=== PATIENT | female | born 1990 | race Hispanic/Latino ===

== ENCOUNTER 2018-10-02 20:43 | Emergency (ER) | payer MEDICAID ==
[2018-10-02] MEDS ORDERED: ACETAMINOPHEN EXTRA STRENGTH 500 MG TABLET ONE (21:03)
== END 2018-10-02 21:22 | disposition home or self-care (01) ==
LOC: EDH 20:43
DX: O16.2 Unspecified maternal hypertension, second trimester (principal); O99.512 Diseases of the respiratory system complicating pregnancy, second trimester; J45.909 Unspecified asthma, uncomplicated; Z88.6 Allergy status to analgesic agent; Z3A.16 16 weeks gestation of pregnancy

== ENCOUNTER 2025-03-17 15:28 | Emergency (ER) | payer MEDICAID, OTHER ==
[~2025-03-17] VITALS: Ht 157.5 cm; Wt 100.7 kg
--- NOTE | 2025-03-17 15:48 | ERN ---
ED Note History of Present Illness Stated Complaint: FEVER, FLU, COUGH Time Seen by MD: 15:40 Dictation: PATIENT IS A 34-YEAR-OLD FEMALE COMING IN TODAY WITH FLU-LIKE SYMPTOMS TO INCLUDE COUGH WITH THE OCCASIONAL YELLOW PHLEGM. SHE ALSO STATES SHE HAS CHEST PAIN WHEN SHE COUGHS. SHE ALSO STATES SHE HAS BEEN HAVING FLU-LIKE SYMPTOMS TO INCLUDE CLEAR RUNNY NOSE SORE THROAT WITH VERY PAINFUL SWALLOWING. FRONTAL HEADACHE. NO LOSS OF TASTE OR SMELL NO NAUSEA VOMITING NO DIARRHEA. NO PRIMARY CARE DOCTOR AND HAS NOT TAKEN ANYTHING TODAY PRIOR TO ARRIVAL FOR PAIN. 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 Allergies: Coded Allergies: NSAIDS (Non-Steroidal Anti-Inflamma (Unverified Allergy, Unknown, 03/17/25) aspirin (Unverified Allergy, Unknown, 03/17/25) Past Medical History History: Not Applicable RN Note Reviewed/Agreed w/PFSH: Yes Review of System Dictation CONSTITUTIONAL: NEGATIVE EXCEPT FOR HPI FEVER CHILLS HEAD/FACE: NEGATIVE EXCEPT FOR HPI EENT: NEGATIVE EXCEPT FOR HPI FRONTAL HEADACHE, CLEAR RHINITIS, SORE THROAT WITH PAINFUL SWALLOWING RESPIRATORY: NEGATIVE EXCEPT FOR HPI INTERMITTENT PRODUCTIVE COUGH WITH YELLOW PHLEGM GASTROINTESTINAL/ABDOMINAL: NEGATIVE EXCEPT FOR HPI GENITOURINARY: NEGATIVE EXCEPT FOR HPI MUSCULOSKELETAL: NEGATIVE EXCEPT FOR HPI INTEGUMENTARY: NEGATIVE EXCEPT FOR HPI NEUROLOGICAL/PSYCH: NEGATIVE EXCEPT FOR HPI HEMATOLOGIC/LYMPHATIC: NEGATIVE EXCEPT FOR HPI ALL SYSTEMS NEGATIVE, EXCEPT NOTED ABOVE. 13 POINT REVIEW OF SYSTEMS ASSESSED AND ALL NEGATIVE EXCEPT FOR ABOVE. Initial Vital Sign VS Vital Signs Date Time Temp Pulse Resp B/P (MAP) Pulse Ox O2 Delivery O2 Flow Rate FiO2 03/17/25 15:53 98.4 104 20 129/87 96 Room Air 0 Physical Exam Dictation VITAL SIGNS REVIEWED GENERAL APPEARANCE: ALERT, ORIENTED X 3, MILD ACUTE DISTRESS, WELL DEVELOPED, NOURISHED. OBESE HEAD AND FACE: NON-TRAUMATIC. EYES: PERRL, PINK CONJUNCTIVAS, EYELID NO TRAUMA, ANTERIOR CHAMBER WITH ARCUS SENILIS. EARS: PINNAS INTACT AND NO SIGNS OF TRAUMA OR ERYTHEMA EAR CANALS CLEAR AND NO DISCHARGE TM NO ERYTHEMA NOSE: CLEAR DISCHARGE, NO BLEEDING. OROPHARYNX: MOUTH NORMAL, TONGUE PINK, PHARYNX CLEAR, MODERATE PHARYNGEAL ERYTHEMA, TONSILS NO EXUDATES, NO ABSCESSES NOTED, MUCOUS MEMBRANE MOIST UVULA MIDLINE, VOICE IS CLEAR NECK: SUPPLE, NON-TENDER, NO THYROMEGALY, NO MASSES, NO JVD, NO BRUITS BREAST:DEFERRED CHEST:NO TENDERNESS, NO CREPITUS, NO PARADOXICAL MOVEMENT, NO RETRACTIONS LUNGS:CLEAR, WELL-VENTILATED, SYMMETRIC, NO RALES, NO WHEEZING, NO RHONCHI, NO STRIDOR, GOOD BREATH SOUNDS BILATERALLY OCCASIONAL COUGH NOTED, CONGESTED. HEART: REGULAR RATE, REGULAR RHYTHM, NO MURMUR, NO GALLOPS VASCULAR: NO PERIPHERAL EDEMA, ABDOMEN: SOFT, POSITIVE BOWEL SOUNDS, NONDISTENDED, NO GUARDING, NONTENDER, NO REBOUND, NO MASSES NO HEPATOMEGALY, NO SPLENOMEGALY, NO VOSS'S SIGN, NO HERNIAS. RECTAL: DEFERRED GENITAL: DEFERRED NEUROLOGICAL: NORMAL SPEECH, MOTOR FUNCTION INTACT, SENSORY FUNCTION INTACT MUSCULOSKELETAL: NECK NONTENDER, FULL RANGE OF MOTION, BACK NONTENDER, FULL RANGE OF MOTION, EXTREMITIES: NONTENDER, FULL RANGE OF MOTION SKIN: COLOR PINK, DRY, NO TURGOR, NO RASH, NO LACERATIONS, NO ABRASIONS, NO CONTUSIONS. LYMPHATIC: DEFERRED Results (Laboratory/Radiology) Laboratory/Radiology Laboratory Tests Test 03/17/25 16:00 Influenza Type A Antigen Negative For Type A Influenza Type B Antigen Negative For Type B SARS-CoV-2 Antigen (Rapid) PRESUMPTIVE NEGATIVE Group A Streptococcus Rapid negative (NEGATIVE) Labs Reviewed?: Yes ED Course ED Course Orders Procedure Category Date Status Time Covid19 (Sars Antigen LAB 03/17/25 Complete Rapid) 15:44 Influenza Type A & B, LAB 03/17/25 Complete Rapid 15:44 Rapid (Group A Strep) LAB 03/17/25 Complete 15:44 Acetaminophen 500mg PHA 03/17/25 Complete Tab (Tylenol 500mg T 16:00 Ceftriaxone 1g Vial PHA 03/17/25 Complete (Rocephine 1g Inj) 16:00 Current Medications Medications (Trade) Dose Ordered Sig/Megan Route PRN Reason Start Time Stop Time Status Last Admin Dose Admin Acetaminophen (TYLenol 500MG TAB) 1,000 mg ONCE ONCE PO 03/17/25 16:00 03/17/25 16:01 DC 03/17/25 16:28 Ceftriaxone Sodium (ROCEphine 1G INJ) 1 gm ONCE ONCE IM 03/17/25 16:00 03/17/25 16:01 DC 03/17/25 16:27 Vital Signs Date Time Temp Pulse Resp B/P (MAP) Pulse Ox O2 Delivery O2 Flow Rate FiO2 03/17/25 15:53 98.4 104 20 129/87 96 Room Air 0 1705/PATIENT NEGATIVE FOR FLU COVID AND STREP. SHE WILL BE TREATED EMPIRICALLY FOR ACUTE PHARYNGITIS UNSPECIFIED AND BACTERIAL BRONCHITIS. SHE WILL BE PRESCRIBED AZITHROMYCIN 500 DAILY FOR SEVEN DAYS, TESSALON ZARINA. TOLD TO SEE HER PRIMARY CARE DOCTOR Medical Decision Making MDM MEDICAL DECISION-MAKING BASED ON SWABS FOR FLU COVID AND STREP. ALL WERE NEGATIVE PATIENT RECEIVED ROCEPHIN EMPIRICALLY FOR ACUTE PHARYNGITIS UNSPECIFIED SHE WILL BE TREATED FOR THIS AND ACUTE BACTERIAL BRONCHITIS. WITH COUGH AZITHROMYCIN AND TESSALON WE WILL BE PRESCRIBED DX & DISP Disposition: Discharge Departure Impression: Primary Impression: Acute pharyngitis, unspecified Additional Impressions: Acute bacterial bronchitis, Cough Condition: Stable Scripts Albuterol Sulfate (Ventolin Hfa/Proventil Hfa/Proair Hfa) 90 Mcg Puff 2 PUFF IH Q4H for WHEEZING, #1 INHALER 0 Refills Prov: LYNDSEY VERGARA LOCOMOTIVE MECHANIC APPRENTICE 03/17/25 Benzonatate (Tessalon Perles) 100 Mg Cap 200 MG PO TID for cough, #60 CAP 0 Refills Prov: LYNDSEY VERGARA LOCOMOTIVE MECHANIC APPRENTICE 03/17/25 Azithromycin (Zithromax Tri-Dante) 500 Mg Tablet 500 MG PO DAILY for 7 Days, #7 TAB Prov: LYNDSEY VERGARA LOCOMOTIVE MECHANIC APPRENTICE 03/17/25 Additional Instructions: FOLLOW-UP WITH PRIMARY CARE PROVIDER IN 1 TO 2 DAYS. TAKE MEDICATIONS DIRE CTED HERE IN THE EMERGENCY ROOM. OKAY TO CONTINUE HOME MEDICATIONS UNLESS OTHERWISE DISCUSSED DURING YOUR VISIT IN THE EMERGENCY ROOM TODAY. RETURN TO YOUR NEAREST EMERGENCY ROOM IF SYMPTOMS WORSEN OR IF THERE IS NO IMPROVEMENT. CALL 911 IF YOU NEED IMMEDIATE ASSISTANCE. TAKE TYLENOL OR MOTRIN [id number] NEEDED AND IF NO CONTRAINDICATIONS ARE PRESENT. INCREASE ORAL HYDRATION. A WOUND CULTURE OR URINE CULTURE WAS ORDERED HERE IN THE EMERGENCY ROOM DEPARTMENT PLEASE FOLLOW-UP WITH PRIMARY CARE PROVIDER AND ADVISE THEM TO GET REPEAT PORTS FROM OUR FACILITY. IF YOU HAD ANY RAFIA WRAP/SPLINTS THAT WERE APPLIED HERE, PLEASE DO NOT REMOVE THEM UNTIL YOU SEE YOUR PRIMARY CARE OR SPECIALTY. TAKE TYLENOL NEEDED COVID COUNTER FOR FEVER PAIN. TAKE ANTIBIOTICS DIRECTED UNTIL GONE. USE ALBUTEROL INHALER EVERY 4 HOURS WHILE AWAKE FOR THE NEXT TWO DAYS. FOLLOW UP WITH YOUR PRIMARY CARE DOCTOR. Referrals: SELF,REFERRAL (PCP) Time of Disposition: 17:06 I have reviewed the case, Diagnosis and Plan LYNDSEY VERGARA LOCOMOTIVE MECHANIC APPRENTICE Mar 17, 2025 15:48
[2025-03-17 16:22] LABS: RAPID GROUP A STREP negative (NEGATIVE)
[2025-03-17] MEDS: cefTRIAXone 1G VIAL IM ONE (16:27)
[2025-03-17] MEDS: acetaMINOPHEN 500 MG TABLET PO ONE (16:28)
[2025-03-17 16:30] LABS: COVID19 (SARS ANTIGEN RAPID) PRESUMPTIVE NEGATIVE (NEGATIVE); INFLUENZA TYPE A Negative For Type A (NEGATIVE); INFLUENZA TYPE B Negative For Type B (NEGATIVE)
[2025-03-17] MEDS ORDERED: ALBUHFA IH (17:08)
[2025-03-17] MEDS ORDERED: AZIT500T2 PO (17:08)
[2025-03-17] MEDS ORDERED: BENZ-39 PO (17:08)
[2025-03-17 17:15] VITALS: BP 121/85; PULSE 95; RESP 18; TEMP 98.4; O2SAT 97
== END 2025-03-17 17:20 | disposition home or self-care (01) ==
LOC: EDH 15:28
DX: J20.8 Acute bronchitis due to other specified organisms (principal); B96.89 Other specified bacterial agents as the cause of diseases classified elsewhere; Z88.6 Allergy status to analgesic agent; Z20.822 Contact with and (suspected) exposure to COVID-19
CPT/HCPCS: 99283; 87426; 87880; 87804 ×2; 96372; J0696